=== PATIENT | male | born 1935 | race Caucasian/White ===

== ENCOUNTER 2018-02-17 12:29 | Emergency (ER) | payer MEDICARE ==
[2018-02-17 12:53] LABS: #Basophils 0.1 thou/uL (0.0-0.2); #Eosinphils 0.5 thou/uL (0.0-0.7); #Lymphocytes 1.3 thou/uL (1.20-3.40); #Monocytes 0.6 thou/uL (0.11-0.59); %Basophils 1.2 % (0.0-1.0); %Eosinophils 6.6 % (0.0-10.0); %Lymphocytes 17.1 % (21.0-51.0); %Monocytes 8.5 % (0.0-10.0); %Neutrophils 66.7 % (42.0-75.0); Mean Corpuscular HGB CONC 33.9 g/dL (32.0-36.0); Mean Corpuscular Volume 88.4 fL (78.0-98.0); Mean Platelet Volume 7.9 fL (7.4-10.4); Platelet Count 253 thou/uL (130-400); RBC Distribution Width 12.5 % (11.5-14.5); Red Blood Cell (RBC) Count 5.01 mill/uL (4.70-6.10); White Blood Cell (WBC) Count 7.5 thou/uL (4.8-10.8)
[2018-02-17 13:10] LABS: ALT (SGPT) 12 U/L (8-55); AST (SGOT) 18 U/L (5-34); Alkaline Phosphatase 96 U/L (40-150); Anion Gap 15 mmol/L (10-20); BUN (Urea Nitrogen) 12 mg/dL (8.4-25.7); Bilirubin, Total 0.8 mg/dL (0.2-1.2); Calc. Creatinine Clearance 0 mL/min (70-130); Calcium 9.7 mg/dL (7.8-10.44); Carbon Dioxide 23 mmol/L (23-31); Chloride 108 mmol/L (98-107); Estimated GFR-MDRD 61; Glucose 111 mg/dL (83-110); Potassium 3.6 mmol/L (3.5-5.1); Sodium 142 mmol/L (136-145)
[2018-02-17 13:12] LABS: CKMB 2.3 ng/mL (0-6.6); Troponin I 0.013 ng/mL (< 0.028)
[2018-02-17] MEDS ORDERED: Nitroglycerin 0.4 MG TAB (25 Tab Bottle) ONE (13:12)
[2018-02-17] MEDS ORDERED: Nitroglycerin 2% Ointment 1 INCH/1 GM Packet ONE (13:16)
--- NOTE | 2018-02-17 14:13 | RAD ---
AP PORTABLE CHEST: 02/17/2018 1233 HOURS COMPARISON: None. FINDINGS: The heart is normal in size, and the lungs are clear. No infiltrate or effusion is seen. There is n o vascular congestion or edema. The mediastinum appears normal. IMPRESSION: No acute thoracic findings. POS: HOME
--- NOTE | 2018-02-17 14:50 | CT ---
CT OF THE BRAIN: Date: 02-17-[address] was done for evaluation of right arm numbness and hand weakness. Comparison: None. FINDINGS: The ventricles are normal in size with no shift. No intracranial bleeding, mass or edema was seen. 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 A tiny low density area perip herally in the right parietal lobe is probably a small infarct. It is difficult to date this, but the location would not cause any of the current symptoms. Those areas that potentially could be linked t o the right arm and hand, there were no abnormalities of concern. A mild degree of atrophy is present . The skull appears normal. Mastoid air cells are clear. 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 POS: HOME
== END 2018-02-17 18:28 | disposition short-term general hospital (02) ==
LOC: BURERS 12:29
DX: G45.9 Transient cerebral ischemic attack, unspecified (principal); R07.89 Other chest pain; E11.9 Type 2 diabetes mellitus without complications; J44.9 Chronic obstructive pulmonary disease, unspecified; Z86.73 Personal history of transient ischemic attack (TIA), and cerebral infarction without residual deficits; Z85.828 Personal history of other malignant neoplasm of skin; Z79.84 Long term (current) use of oral hypoglycemic drugs; Z79.899 Other long term (current) drug therapy
CPT/HCPCS: 70450; 71045; 80053; 82553; 83880; 84484; 85025; 93005; 94760